=== PATIENT | female | born 1990 ===

== ENCOUNTER 2018-01-19 12:31 | Emergency (ER) | payer OTHER ==
[2018-01-19 12:31] VITALS: BMI 24.6
[2018-01-19 12:54] VITALS: BP 134/91; PULSE 71; TEMP 97.9; O2SAT 100
--- NOTE | 2018-01-19 14:30 | C.PDOC ---
History Of Present Illness 27 y/o female presents to the ER complaining of pain to the right shoulder and trapezius area which has been present for the past 2 weeks. Patient states that a box fell on her trapezius region when she was in a clothing store. Patient denies having acute injury. She states that she has pain with movement of the right shoulder. She has been going to rehab for heat treatment. She went back to work today and she was advised to visit the ER. Time Seen by Provider: 01/19/18 13:10 Chief Complaint (Nursing): Upper Extremity Problem/Injury History Per: Patient History/Exam Limitations: no limitations Onset/Duration Of Symptoms: Days Current Symptoms Are (Timing): Still Present Severity: Moderate Past Medical History Reviewed: Historical Data, Nursing Documentation, Vital Signs Vital Signs: Last Vital Signs Temp 97.9 F 01/19/18 12:50 Pulse 71 01/19/18 12:50 Resp 20 01/19/18 15:03 BP 134/91 H 01/19/18 12:50 Pulse Ox 100 01/19/18 14:30 - Medical History PMH: No Chronic Diseases Surgical History: No Surg Hx Family History: States: No Known Family Hx - Social History Hx Alcohol Use: No Hx Substance Use: No - Immunization History Hx Tetanus Toxoid Vaccination: No Hx Influenza Vaccination: No Hx Pneumococcal Vaccination: No Review Of Systems Except As Marked, All Systems Reviewed And Found Negative. Constitutional: Negative for: Fever, Chills Musculoskeletal: Positive for: Shoulder Pain (right shoulder pain) Neurological: Negative for: Weakness, Numbness Physical Exam - Physical Exam Appears: Non-toxic, No Acute Distress Skin: Normal Color, Warm Head: Atraumatic, Normacephalic Eye(s): bilateral: Normal Inspection Nose: Normal Oral Mucosa: Moist Neck: Supple Chest: Symmetrical Cardiovascular: Rhythm Regular Respiratory: Normal Breath Sounds, No Rales, No Rhonchi, No Wheezing Extremity: Normal ROM (right shoulder ), Tenderness (minor tenderness to lateral trapezius medial to right shoulder), No Deformity, No Swelling Neurological/Psych: Oriented x3, Normal Speech ED Course And Treatment O2 Sat by Pulse Oximetry: 100 (RA) Pulse Ox Interpretation: Normal - Other Rad R shoulder X-Ray: Interpreted by Me (neg) Progress Note: X-Ray- Right Shoulder ordered and reviewed. Patient given Motrin PO. Medical Decision Making Medical Decision Making: minor superior contusion minimal tylenol and Heat making worse normal x-ray and exam. Disposition Doctor Will See Patient In The: Office Counseled Patient/Family Regarding: Studies Performed, Diagnosis - Disposition Referrals: [facility] [Outside] Disposition: HOME/ ROUTINE Disposition Time: 14:30 Condition: GOOD Additional Instructions: bolsa de hielo 1/2 hora por hora, nada caliete Ibuprofeno/Advil 600 mg cada 6 horas mayank necessario Sigue en la Clinic Puede trabajar mayank normal. Instructions: Shoulder Sprain, Contusion (DC) Forms: [employer] (Belgian), Work Excuse Print Language: IRISH - Clinical Impression Clinical Impression: Sprain of shoulder, right - Scribe Statement The provider has reviewed the documentation as recorded by the Deanneibалександр Shah Provider Attestation: All medical record entries made by the Scribe were at my direction and personally dictated by me. I have reviewed the chart and agree that the record accurately reflects my personal performance of the history, physical exam, medical decision making, and the department course for this patient. I have also personally directed, reviewed, and agree with the discharge instructions and disposition.
--- NOTE | 2018-01-19 14:50 | RAD ---
PROCEDURE: Radiographs of the Right Shoulder HISTORY: 1 wk ago, strain COMPARISON: No prior. FINDINGS: BONES: Normal. No fracture. JOINTS: Normal. Glenohumeral and acromioclavicular joints preserved. No osteoarthritis. SOFT TISSUES: Normal. OTHER FINDINGS: None. IMPRESSION: Normal radiographs of the right shoulder. Concordant results with the preliminary interpretation rendered by the emergency department physician procedure.
[2018-01-19 15:04] VITALS: RESP 20
== END 2018-01-19 15:03 | disposition home or self-care (01) ==
LOC: C.ER 12:31
DX: S43.401A Unspecified sprain of right shoulder joint, initial encounter (principal); W20.8XXA Other cause of strike by thrown, projected or falling object, initial encounter; Y92.512 Supermarket, store or market as the place of occurrence of the external cause

== ENCOUNTER 2018-09-27 09:42 | Emergency (ER) | payer SELFPAY ==
[2018-09-27 09:42] VITALS: BMI 24.6
[2018-09-27 09:48] VITALS: TEMP 98
[2018-09-27 10:35] VITALS: BP 124/72; PULSE 83; RESP 18; O2SAT 98
--- NOTE | 2018-09-27 14:08 | C.PDOC ---
History Of Present Illness 28 year old female presents to the emergency department requesting a test. Patient states that she took an at-home test three days ago, which resulted positive. She presents to the ED for confirmation of the positive, and offers no physical complaints at this time. Time Seen by Provider: 09/27/18 09:59 Chief Complaint (Nursing): Medical Clearance History Per: Patient History/Exam Limitations: no limitations Onset/Duration Of Symptoms: Days (3) Past Medical History Reviewed: Historical Data, Nursing Documentation, Vital Signs Vital Signs: Last Vital Signs Temp 98 F 09/27/18 09:47 Pulse 83 09/27/18 10:33 Resp 18 09/27/18 10:33 BP 124/72 09/27/18 10:33 Pulse Ox 98 09/27/18 10:33 - Medical History PMH: No Chronic Diseases Surgical History: No Surg Hx Family History: States: Unknown Family Hx - Social History Hx Alcohol Use: No Hx Substance Use: No - Immunization History Hx Tetanus Toxoid Vaccination: No Hx Influenza Vaccination: No Hx Pneumococcal Vaccination: No Review Of Systems Except As Marked, All Systems Reviewed And Found Negative. Constitutional: Negative for: Fever, Chills Cardiovascular: Negative for: Chest Pain Respiratory: Negative for: Shortness of Breath Gastrointestinal: Negative for: Nausea, Vomiting, Abdominal Pain, Diarrhea Genitourinary: Negative for: Dysuria, Frequency, Vaginal Discharge, Vaginal Bleeding Physical Exam - Physical Exam Appears: Well, Non-toxic, No Acute Distress Skin: Normal Color, Warm, Dry Head: Atraumatic, Normacephalic Eye(s): bilateral: Normal Inspection, PERRL, EOMI Neck: Normal, Supple Chest: Symmetrical, No Tenderness Cardiovascular: Rhythm Regular, No Murmur Respiratory: Normal Breath Sounds, No Rales, No Rhonchi, No Wheezing Gastrointestinal/Abdominal: Soft, No Tenderness, No Guarding, No Rebound Extremity: Normal ROM (all extremities) Neurological/Psych: Oriented x3, Normal Speech ED Course And Treatment O2 Sat by Pulse Oximetry: 98 (RA) Pulse Ox Interpretation: Normal Medical Decision Making Medical Decision Making: Plan: POC Urine Test Disposition - Disposition Referrals: [facility] [Outside] [facility] [Outside] Disposition: HOME/ ROUTINE Disposition Time: 10:25 Condition: GOOD Additional Instructions: ONEIDA MOTLEY, thank you for letting us take care of you today. The emergency medical care you received today was directed at your acute symptoms. If you were prescribed any medication, please fill it and take as directed. It may take several days for your symptoms to resolve. Return to the Emergency Department if your symptoms worsen, do not improve, or if you have any other problems. Please contact your doctor or call one of the physicians/clinics you have been referred to that are listed on the Patient Visit Information form that is included in your discharge packet. Bring any paperwork you were given at discharge with you along with any medications you are taking to your follow up visit. Our treatment cannot replace ongoing medical care by a primary care provider outside of the emergency department. Thank you for allowing the [facility] team to be part of your care today. Follow up with the [facility] for further management. GOOD LUCK! Prescriptions: Vit No.126/Iron/Folic [Classic Tablet] 1 each PO DAILY #30 tablet Instructions: Stomach Pain in Early Forms: [employer] (American) - Clinical Impression Clinical Impression: - Scribe Statement The provider has reviewed the documentation as recorded by the Scribe (Stan Ross) Provider Attestation: All medical record entries made by the Scribe were at my direction and personally dictated by me. I have reviewed the chart and agree that the record accurately reflects my personal performance of the history, physical exam, medical decision making, and the department course for this patient. I have also personally directed, reviewed, and agree with the discharge instructions and disposition.
== END 2018-09-27 10:35 | disposition home or self-care (01) ==
LOC: C.ER 09:42
DX: Z32.01 Encounter for pregnancy test, result positive (principal)